=== PATIENT | female | born 1960 | race Caucasian/White ===

== ENCOUNTER 2018-03-18 03:22 | Emergency (ER) | payer MEDICAID ==
[2018-03-18 04:16] LABS: ADD MAN DIFF? NO
[2018-03-18 04:19] LABS: WHITE BLOOD COUNT 7.3 10^3/ul (4.8-10.8)
[2018-03-18 04:19] LABS: BASOPHIL # 0.1 10^3/ul (0.0-0.1); BASOPHILS % 1.2 % (0.0-2.0); EOSINOPHILS # 0.3 10^3/ul (0.0-0.5); EOSINOPHILS % 3.9 % (0.0-7.0); HEMATOCRIT 37.6 % (37.0-47.0); HEMOGLOBIN 12.1 g/dl (12.0-16.0); LYMPHOCYTES # 2.9 10^3/ul (0.8-2.9); LYMPHOCYTES % 39.7 % (15.0-51.0); MEAN CORPUSCULAR HEMOGLOBIN 26.8 pg (29.0-33.0); MEAN CORPUSCULAR HGB CONC 32.2 g/dl (32.0-37.0); MEAN CORPUSCULAR VOLUME 83.4 fl (82.0-101.0); MEAN PLATELET VOLUME 12.2 fl (7.4-10.4); MONOCYTE # 0.5 10^3/ul (0.3-0.9); MONOCYTES % 6.3 % (0.0-11.0); NEUTROPHIL # 3.5 10^3/ul (1.6-7.5); NEUTROPHILS % 48.8 % (39.0-77.0); PLATELET COUNT 206 10^3/UL (140-415); RED BLOOD COUNT 4.51 10^6/ul (4.20-5.40); RED CELL DISTRIBUTION WIDTH 12.1 % (11.5-14.5)
[2018-03-18 04:40] LABS: ALANINE AMINOTRANSFERASE 17 IU/L (13-69); ALBUMIN/GLOBULIN RATIO 1.25; ALKALINE PHOSPHATASE 110 IU/L (42-121); ANION GAP 10 (5-13); ASPARTATE AMINO TRANSFERASE 27 IU/L (15-46); BILIRUBIN,INDIRECT 0.4 mg/dl (0-1.1); BILIRUBIN,TOTAL 0.4 mg/dl (0.2-1.3); BLOOD UREA NITROGEN 15 mg/dl (7-20); CARBON DIOXIDE 24 mmol/L (21-31); CHLORIDE 107 mmol/L (97-110); CREATININE 0.65 mg/dl (0.44-1.00); Estimated GFR > 60 mL/min (>60); GLUCOSE 142 mg/dl (70-220); POTASSIUM 4.3 mmol/L (3.5-5.1); SODIUM 141 mmol/L (135-144); TOTAL PROTEIN 7.2 g/dl (6.1-8.1)
[2018-03-18 04:51] LABS: B-TYPE NATRIURETIC PEPTIDE 155 PG/ML (0-125); TROPONIN-I 0.048 ng/ml (0.000-0.120)
[2018-03-18] MEDS: ONDANSETRON 4 MG INJ IV (04:52)
[2018-03-18] MEDS: morphine 4 MG/ML VIAL IV (04:52)
[2018-03-18] MEDS ORDERED: DOCUSATE SODIUM 100 MG CAP PO (07:00)
[2018-03-18] MEDS ORDERED: BISACODYL (EC) 5 MG TAB PO (07:00)
[2018-03-18] MEDS ORDERED: NACL 0.9% 3 ML SYG IV (07:00)
[2018-03-18] MEDS ORDERED: ONDANSETRON 4 MG TAB PO (07:00)
[2018-03-18] MEDS: AMLODIPINE 5 MG TAB PO (07:28)
[2018-03-18 07:55] LABS: MAGNESIUM 1.9 mg/dl (1.7-2.5)
[2018-03-18 07:55] LABS: CHOL/HDL RATIO 4.5 RATIO; CHOLESTEROL 155 mg/dl (100-200); HDL CHOLESTEROL 34 mg/dl (35-98); LDL CHOLESTEROL,CALCULATED 92 mg/dl; TRIGLYCERIDES 145 mg/dl (0-149)
[2018-03-18 08:21] LABS: HEMOGLOBIN A1C 6.2 % (0-5.9)
[2018-03-18] MEDS: KETOROLAC 15 MG INJ IV (08:27)
[2018-03-18] MEDS: SOD CHLORIDE 0.9% 1,000 ML IV (08:27)
[2018-03-18] MEDS ORDERED: ASPIRIN (EC) 81 MG TAB PO (09:00)
[2018-03-18] MEDS: morphine 2 MG INJ IV (09:58)
[2018-03-18] MEDS: NITROGLYCERIN (SL) 0.4 MG TAB SL (10:06)
[2018-03-18] MEDS ORDERED: ASPIRIN 325 MG TAB (10:25)
[2018-03-18] MEDS: ASPIRIN 325 MG TAB PO (10:32)
[2018-03-18 10:35] LABS: CREATINE KINASE 174 IU/L (23-200)
[2018-03-18 10:48] LABS: CK INDEX 1.6; CK-MB 2.75 ng/ml (0.0-2.4)
[2018-03-18] MEDS ORDERED: ATORVASTATIN 20 MG TAB PO (21:00)
[2018-03-19] MEDS ORDERED: ASPIRIN (EC) 81 MG TAB PO (09:00)
== END 2018-03-18 17:43 | disposition home or self-care (01) ==
LOC: E/R 03:22
DX: R07.9 Chest pain, unspecified (principal); I10 Essential (primary) hypertension
CPT/HCPCS: 36415; 71045; 80053; 80061; 82550; 82553; 82962; 83036; 83735; 83880; 84443; 84484; 85025; 93005; 93306; 96374; 96375; 99285-25